=== PATIENT | male | born 1970 | race Two or more races ===

== ENCOUNTER 2020-07-30 10:46 | Inpatient (IN) | payer SELFPAY ==
[~2020-07-30] VITALS: Ht 188 cm; Wt 72.8 kg
[2020-07-30] VITALS (43 sets, daily range): BP systolic 75–149; BP diastolic 17–94
[2020-07-30] MEDS ORDERED: NOREPINEPHRINE 8 MG/250ML KIT 250 ML IV ONE (11:02)
[2020-07-30] MEDS ORDERED: DEXTROSE 50% SYRINGE 100 ML IV ONE (11:14)
[2020-07-30 11:33] LABS: Mean Corpuscular Hemoglobin 27.2 pg (28.0-32.0)
[2020-07-30 11:36] LABS: Hematocrit 52.6 % (41.0-53.0); Hemoglobin 15.6 g/dL (13.5-17.5); Mean Corpuscular Hgb Conc. 29.7 g/dL (32.0-36.0); Mean Corpuscular Volume 91.5 fL (80.0-100.0); Platelet Count (auto) 370 10^3/uL (140-450); Red Blood Cells 5.75 10^6/uL (4.5-5.90); Red Cell Distribution Width 18.7 % (11.8-14.3)
[2020-07-30] MEDS ORDERED: ALBUMIN 25% 100 ML IV ONE ×2 (11:38→11:45)
[2020-07-30 11:44] LABS: Albumin 4.2 g/dL (3.4-5.0)
[2020-07-30 11:45] LABS: INR 1.27 (0.9-1.15); Partial Thromboplastin Time 27.5 sec (23.0-31.2)
[2020-07-30] MEDS ORDERED: SODIUM CHLORIDE 0.9% 1,000 ML IVB ONE (11:45)
[2020-07-30] MEDS ORDERED: SODIUM CHLORIDE 0.9% 2,000 ML IV ONE (11:45)
[2020-07-30] MEDS ORDERED: ACETAMINOPHEN 650 MG RECT SUPP PR ONE (11:45)
[2020-07-30] MEDS ORDERED: NOREPINEPHRINE 8 MG/250ML KIT 250 ML IV SCH (11:45)
[2020-07-30] MEDS ORDERED: D5W 5% 1,000 ML IV ONE ×2 (11:45)
[2020-07-30 11:48] LABS: BUN/Creatinine Ratio 12.3; Bilirubin, Total 1.2 mg/dL (0.2-1.0)
[2020-07-30 11:58] LABS: Magnesium 4.6 mg/dL (1.6-2.6); Potassium 9.5 mmol/L (3.5-5.1)
[2020-07-30 11:59] LABS: White Blood Cell 29.8 10^3/uL (4.4-10.8)
[2020-07-30 12:02] LABS: Basophils % (manual) 0 (0.0-2.0); Blast Cells 0; Eosinophils % (manual) 0 (0-7); Metamyelocytes % 0; Myelocytes % 0; Promyelocytes % 0; Reactive Lymphocytes 0
[2020-07-30] MEDS ORDERED: InsuLIN REG 1unit/0.01ml Soln (100units/ml) IV ONE ×2 (12:15→18:30)
[2020-07-30] MEDS ORDERED: DEXTROSE (50%) 50ML SYRG IV ONE ×2 (12:15→18:30)
[2020-07-30] MEDS ORDERED: SODIUM BICARBONATE 8.4% INJ 50ML SYRINGE IV ONE ×2 (12:15→18:21)
[2020-07-30] MEDS ORDERED: ALBUTEROL SULF 2.5 MG/0.5ML(0.5%) NEB SOLN NEB ONE ×2 (12:15→18:30)
[2020-07-30] MEDS ORDERED: CALCIUM GLUC 1,000mg/50ml-NS 50 ML IV ONE ×2 (12:15)
[2020-07-30] MEDS ORDERED: SODIUM ZIRCONIUM CYCL 10 GM PAK GT ONE (12:15)
[2020-07-30] MEDS ORDERED: SODIUM BICARBONATE 8.4 % INJ 50ML VIAL IV ONE ×2 (12:15→16:45)
[2020-07-30] MEDS ORDERED: MIDAZOLAM DRIP 50 mg/50mL 50 ML IV ONE ×2 (12:21→14:52)
[2020-07-30] MEDS ORDERED: SODIUM CHLORIDE 0.9% 1,000 ML IV SCH ×2 (12:45→21:45)
[2020-07-30] MEDS: MIDAZOLAM DRIP 50 mg/50mL 50 ML IV SCH ×4 (12:45→23:52)
[2020-07-30 12:50] LABS: Lactic Acid w/Reflex 15.3 mmol/L (0.4-2.0)
[2020-07-30 12:50] LABS: Band Neutrophils % (manual) 8; Lymphocytes % (manual) 13 (10.0-50.0); Monocytes % (manual) 6 (0-12)
[2020-07-30] MEDS: VASOPRESSIN 50 UNITS in D5W 5% 247.5 ML IV SCH (12:57)
[2020-07-30] MEDS ORDERED: MORPHINE SULF INJ 2 MG/ML SYRINGE 1ML IV PRN (13:15)
[2020-07-30] MEDS ORDERED: SODIUM BICARBONATE 50ML VIAL 150 ML in D5W 5% 1,000 ML IV SCH (13:15)
[2020-07-30] MEDS ORDERED: NITROGLYCERIN 0.4 MG SL TAB SL PRN (13:15)
[2020-07-30] MEDS ORDERED: SODIUM CHLORIDE 0.9% 1,000 ML IV ONE (13:15)
[2020-07-30] MEDS ORDERED: DEXTROSE (50%) 50ML SYRG IV PRN (13:45)
[2020-07-30] MEDS: DOXYCYCLINE 100MG/250ML 250 ML IV SCH (13:55)
[2020-07-30] MEDS ORDERED: ACCU-CHEK COMFORT CURVE STRIP VI SCH (14:00)
[2020-07-30] MEDS ORDERED: cefTRIAXone 1GM/50ML D5W 50 ML IV ONE (16:00)
[2020-07-30] MEDS: InsuLIN REG 1unit/0.01ml Soln (100units/ml) SC SCH ×2 (16:00→21:41)
[2020-07-30] MEDS ORDERED: NOREPINEPHRINE BITARTRATE 32 MG in SODIUM CHL 0.9% 218 ML IV SCH (16:15)
[2020-07-30] MEDS: ACCU-CHEK COMFORT CURVE STRIP VI SCH ×2 (16:18→20:14)
[2020-07-30 17:38] LABS: BUN/Creatinine Ratio 14.4; Calcium 6.2 mg/dL (8.5-10.1)
[2020-07-30 17:45] LABS: Potassium 6.5 mmol/L (3.5-5.1)
[2020-07-30] MEDS ORDERED: EPINEPHrine HCL 1 MG/10 ML SYRG IV ONE (18:21)
[2020-07-30] MEDS ORDERED: CALCIUM CHLOR(10%) 100MG/ML 10ML SYRINGE IV ONE (18:21)
[2020-07-30] MEDS ORDERED: DOPamine 1600MCG/ML D5W 250 ML IV SCH (19:00)
[2020-07-30] MEDS: SODIUM BICARBONATE 50ML VIAL 150 ML in D5W 5% 1,000 ML IV SCH (20:14)
[2020-07-30] MEDS: NOREPINEPHRINE BITARTRATE 16 MG in SODIUM CHL 0.9% 234 ML IV SCH (21:06)
[2020-07-30] MEDS: BUMETANIDE INJECTION 12.5 MG in GIVE UN-DILUTED 0 ML IV SCH (21:21)
[2020-07-30] MEDS: PHENYLEPHRINE IV 250 ML IV SCH ×2 (21:31→21:35)
[2020-07-30] MEDS: PANTOPRAZOLE 40 MG/10 ML VIAL INJ IV SCH (22:36)
[2020-07-30 22:54] LABS: BUN/Creatinine Ratio 14.1; Calcium 6.1 mg/dL (8.5-10.1)
[2020-07-30 23:05] LABS: Potassium 5.8 mmol/L (3.5-5.1)
[2020-07-31] VITALS (76 sets, daily range): BP systolic 37–136; BP diastolic 13–73
[2020-07-31] MEDS: ACCU-CHEK COMFORT CURVE STRIP VI SCH ×4 (00:20→11:46)
[2020-07-31] MEDS: DOXYCYCLINE 100MG/250ML 250 ML IV SCH ×2 (01:42→13:41)
[2020-07-31] MEDS ORDERED: VASOPRESSIN 20 UNIT/ML ONE (03:52)
[2020-07-31] MEDS: InsuLIN REG 1unit/0.01ml Soln (100units/ml) SC SCH ×4 (04:00→11:46)
[2020-07-31 04:56] LABS: Hematocrit 42.8 % (41.0-53.0); Hemoglobin 13.9 g/dL (13.5-17.5); Mean Corpuscular Hemoglobin 27.9 pg (28.0-32.0); Mean Corpuscular Hgb Conc. 32.5 g/dL (32.0-36.0); Mean Corpuscular Volume 85.7 fL (80.0-100.0); Platelet Count (auto) 169 10^3/uL (140-450); Red Blood Cells 4.99 10^6/uL (4.5-5.90); Red Cell Distribution Width 17.3 % (11.8-14.3); White Blood Cell 10.8 10^3/uL (4.4-10.8)
[2020-07-31 05:04] LABS: Basophils % (manual) 0 (0.0-2.0); Blast Cells 0; Eosinophils % (manual) 0 (0-7)
[2020-07-31] MEDS: SODIUM BICARBONATE 50ML VIAL 150 ML in D5W 5% 1,000 ML IV SCH ×2 (05:12→11:00)
[2020-07-31] MEDS: MIDAZOLAM DRIP 50 mg/50mL 50 ML IV SCH ×5 (05:12→15:25)
[2020-07-31 05:15] LABS: Albumin 2.8 g/dL (3.4-5.0)
[2020-07-31 05:26] LABS: Band Neutrophils % (manual) 17; Lymphocytes % (manual) 31 (10.0-50.0); Metamyelocytes % 15; Monocytes % (manual) 7 (0-12); Myelocytes % 15; Promyelocytes % 1; Reactive Lymphocytes 1
[2020-07-31 05:31] LABS: Bilirubin, Total 2.9 mg/dL (0.2-1.0); Total Protein 5.6 g/dL (6.4-8.2)
[2020-07-31 06:24] LABS: Calcium 5.1 mg/dL (8.5-10.1); Potassium 6.6 mmol/L (3.5-5.1)
[2020-07-31 08:30] LABS: Urine Bacteria FEW /hpf (None Seen); Urine Blood 3+ /uL (Negative); Urine Hyaline Cast FEW /lpf (0 - 2); Urine Specific Gravity 1.016 (1.001-1.035); Urine WBC 4 /hpf (0 - 3)
[2020-07-31 08:41] LABS: Amphetamine Screen, Urine POSITIVE (NEGATIVE); Barbiturate Scree,Urine NEGATIVE (NEGATIVE); Benzodiazephine Screen, Urine POSITIVE (NEGATIVE); Cannabinoid Screen, Urine NEGATIVE (NEGATIVE); Cocaine Screen, Urine NEGATIVE (NEGATIVE); Opiate Scree,Urine NEGATIVE (NEGATIVE); Phencyclidine Screen, Urine NEGATIVE (NEGATIVE)
[2020-07-31 08:43] LABS: Sodium Urine 85 mmol/L (40-220)
[2020-07-31 08:48] LABS: Amphetamine Screen, Urine POSITIVE (NEGATIVE); Barbiturate Scree,Urine NEGATIVE (NEGATIVE); Benzodiazephine Screen, Urine POSITIVE (NEGATIVE); Cannabinoid Screen, Urine NEGATIVE (NEGATIVE); Cocaine Screen, Urine NEGATIVE (NEGATIVE); Creatinine, Urine 46 mg/dL (30.0-125.0); Opiate Scree,Urine NEGATIVE (NEGATIVE); Phencyclidine Screen, Urine NEGATIVE (NEGATIVE)
[2020-07-31] MEDS ORDERED: cefTRIAXone 1GM/50ML D5W 50 ML IV SCH (09:00)
[2020-07-31] MEDS: PHENYLEPHRINE INJ 40 MG in SODIUM CHL 0.9% 246 ML IV SCH ×2 (09:30→13:43)
[2020-07-31] MEDS: PANTOPRAZOLE 40 MG/10 ML VIAL INJ IV SCH (09:59)
[2020-07-31] MEDS ORDERED: PANTOPRAZOLE 40 MG/10 ML VIAL INJ IV SCH (10:00)
[2020-07-31] MEDS ORDERED: SODIUM CHLORIDE 0.9% 1,000 ML IV ONE (10:15)
[2020-07-31] MEDS ORDERED: CALCIUM GLUC 1,000mg/50ml-NS 50 ML IV ONE (10:30)
[2020-07-31 11:15] LABS: Hepatitis B Surface Antigen Negative (Negative); Hepatitis C Antibody Negative (Negative)
[2020-07-31] MEDS ORDERED: CALCIUM GLUC 1,000mg/50ml-NS 100 ML IV ONE (11:55)
[2020-07-31] MEDS: CALCIUM GLUC 1,000mg/50ml-NS 50 ML IV SCH (11:56)
[2020-07-31] MEDS: NOREPINEPHRINE BITARTRATE 16 MG in SODIUM CHL 0.9% 234 ML IV SCH (15:10)
[2020-07-31] MEDS: BUMETANIDE INJECTION 12.5 MG in GIVE UN-DILUTED 0 ML IV SCH (15:11)
[2020-07-31] MEDS ORDERED: PHENYLEPHRINE INJ 80 MG in SODIUM CHL 0.9% 242 ML IV SCH (15:15)
[2020-07-31] MEDS ORDERED: EPINEPHrine HCL 250 ML IV SCH (16:00)
[2020-07-31] MEDS: VASOPRESSIN 50 UNITS in D5W 5% 247.5 ML IV SCH (16:07)
[2020-07-31] MEDS ORDERED: EPINEPHrine HCL 1 MG/10 ML SYRG IV ONE (19:19)
[2020-07-31] MEDS ORDERED: SODIUM BICARBONATE 8.4% INJ 50ML SYRINGE IV ONE (19:19)
== END 2020-07-31 19:20 | DRG 871 ==
LOC: ER 10:46 → EDBD 10:46 → TELE 13:03 → ICU WEST 15:09
PROVIDERS: ADMIT Nurse Practitioner Acute Care; ATTEND Internal Medicine Pulmonary Disease
PROC: 5A1945Z Respiratory Ventilation, 24-96 Consecutive Hours (ICD-10-PCS; principal; 2020-07-30)
PROC: 0BH17EZ Insertion of Endotracheal Airway into Trachea, Via Natural or Artificial Opening (ICD-10-PCS; 2020-07-30)
PROC: 5A12012 Performance of Cardiac Output, Single, Manual (ICD-10-PCS; 2020-07-30)
DX: A41.9 Sepsis, unspecified organism (principal); R65.21 Severe sepsis with septic shock; N17.0 Acute kidney failure with tubular necrosis; J96.01 Acute respiratory failure with hypoxia; E87.2 Acidosis; E87.1 Hypo-osmolality and hyponatremia; I46.9 Cardiac arrest, cause unspecified; E16.2 Hypoglycemia, unspecified; E87.5 Hyperkalemia; R74.8 Abnormal levels of other serum enzymes; E86.0 Dehydration; F15.10 Other stimulant abuse, uncomplicated; Z20.822 Contact with and (suspected) exposure to COVID-19; E87.6 Hypokalemia; Z59.0 Homelessness
CPT/HCPCS: 31500; 36415; 36600; 70450; 71045; 74018; 74176; 80048; 80053; 80307; 81001; 82550; 82570; 82805; 82947; 82962; 83605; 83690; 83735; 83930; 84300; 84484; 84550; 85007; 85027; 85379; 85610; 85730; 86803; 87040; 87070; 87077; 87081; 87186; 87205; 87340; 87426; 92950; 93005; 93306; 93970; 94002; 94003; 94644; 99291; C9113; G0378; J0171; J0696; J2250; J3490; J7060; P9047